=== PATIENT | male | born 1950 | race Caucasian/White ===

== ENCOUNTER 2017-04-05 18:40 | Emergency (ER) | payer OTHER, MEDICAID ==
[2017-04-05 23:08] VITALS: BP 126/81
== END 2017-04-05 23:35 | disposition home or self-care (01) ==
LOC: ED 18:40
DX: H40.9 Unspecified glaucoma (principal); R51 Headache; E11.9 Type 2 diabetes mellitus without complications; H54.8 Legal blindness, as defined in USA; Z79.84 Long term (current) use of oral hypoglycemic drugs
CPT/HCPCS: 82962; J1120; J1885; J2150; J3490